=== PATIENT | female | born 1935 | race Caucasian/White ===

== ENCOUNTER 2018-03-23 13:33 | Day surgery (SDC) | payer OTHER ==
[~2018-03-23 13:33] MED LIST: CARBIDOPA-LEVO1 EA13 PO; DITROPAN5 MG PO; ENALAPRIL MALE2.5 MG PO; ESCITALOPRAM OX10 MG PO; GLIMEPIRIDE1 MG PO; QUETIAPINE FUMA25 MG PO; REMERON15 M1 PO; ROPINIROLE HC0.25 MG PO; RYTARY ER 61.21 EACH PO; SYNTH
[2018-03-23] MEDS ORDERED: OXYC1TAB9 PO (17:27)
[2018-03-23] MEDS ORDERED: DUI500 PO (17:27)
== END 2018-03-23 21:20 | disposition home or self-care (01) ==
LOC: CIR.AMB 13:33
DX: S52.532A Colles' fracture of left radius, initial encounter for closed fracture (principal)
CPT/HCPCS: 25609; C1776